=== PATIENT | male | born 1950 | race Caucasian/White ===

== ENCOUNTER 2017-03-02 05:34 | Emergency (ER) | payer OTHER ==
[~2017-03-02] VITALS: Ht 175.3 cm; Wt 97.8 kg
[~2017-03-02 05:34] MED LIST: AMARYL4 MG PO; ANALGESIC325 M1 PO; ASPIRIN325 MG PO; CARAFATE100 MG/ML PO; CENTRUM SILVER1 EAC3 PO; CYANOCOBALAM1000 MCG PO; FERROUS SULFAT325 MG PO; FOLIC ACID1 MG PO; GEMFIBROZIL600 MG PO; GLIMEPIRIDE4 MG PO; INVOKANA300 MG PO; JANUMET 50/11 TABLET PO; JENTADUETO 2.51 EAC2 PO; LASIX20 MG PO; LASIX40 MG PO; LEVAQUIN500 MG PO; LIPITOR20 MG PO; LISINOPRIL2.5 MG PO; LOPID600 MG PO; METOPROLOL SUC100 MG PO; PRAVASTATIN SOD20 MG PO; TOPROL XL100 MG PO; VITAMIN B-122500 MCG SL
[2017-03-02] MEDS ORDERED: METFORMIN HCL1000 MG PO (06:11)
[2017-03-02 06:12] LABS: HEMATOCRIT 44.7 % (38.0-50.0); MCH 32.5 PG (29.0-34.0); MCHC 33.3 G/DL (30.0-36.0); MCV 97.4 FL (86-99); MEAN PLAT.VOLUME 12.8 uM^3 (9.0-12.4); PLATELET COUNT 142 K/uL (156-360); RBC DIS.WIDTH-CV 13.6 % (11.8-14.6); RBC DIS.WIDTH-SD 49.3 % (39-53); RED BLOOD COUNT 4.59 M/uL (4.00-5.50); WHITE BLOOD COUNT 13.4 K/uL (4.1-10.2)
[2017-03-02] MEDS ORDERED: LISINOPRIL10 MG PO (06:12)
[2017-03-02] MEDS ORDERED: PIOGLITAZONE HC15 MG PO (06:13)
[2017-03-02] MEDS ORDERED: FENOFIBRATE145 M1 PO (06:13)
[2017-03-02 06:36] LABS: CHLORIDE 99 mEq/L (99-109); POTASSIUM 4.3 mEq/L (3.7-5.4); SODIUM 132 mEq/L (136-147)
[2017-03-02 06:39] LABS: GLUCOSE 246 mg/dL (70-99)
[2017-03-02 06:40] LABS: ANION GAP 11 MEQ/L (2-14)
[2017-03-02 06:42] LABS: ALKALINE PHOSPHATASE 53 IU/L (3-129); GFR ESTIMATE (CALCULATED) 43 mL/min/
[2017-03-02 06:43] LABS: UREA NITROGEN (BUN) 26 mg/dL (9-23)
[2017-03-02 06:44] LABS: DIRECT BILIRUBIN 0.4 mg/dL (0.0-0.3)
[2017-03-02 06:46] LABS: LIPASE 55 U/L (1.0-51.0)
[2017-03-02 07:18] LABS: ADD MIUA? YES; BILIRUBIN NEGATIVE; BLOOD NEGATIVE; COLOR YELLOW ((YELLOW)); GLUCOSE (STRIP) >=500; KETONES 5; LEUKOCYTES LARGE; NITRITE NEGATIVE; PROTEIN (STRIP) NEGATIVE; SPECIFIC GRAVITY 1.014 (1.000-1.030); UROBILINOGEN 0.2 MG/DL (0.2-1.0)
[2017-03-02 07:35] LABS: BACTERIA RARE /HPF; EPITHELIAL CELLS RARE /HPF; MUCUS TRACE /LPF; UCUL ADDED? NO; WHITE BLOOD CELLS 20-30 /HPF (0-5)
[2017-03-02] MEDS ORDERED: PERCOCET 5/31 TABLET PO (08:28)
[2017-03-02] MEDS ORDERED: FLOMAX0.4 MG PO (08:28)
[2017-03-02] MEDS ORDERED: LEVAQUIN500 MG PO (08:28)
[2017-03-02] MEDS ORDERED: ZOFRAN ODT4 MG PO (08:28)
[2017-03-02 09:08] VITALS: BP 132/76
[2017-03-03] MEDS ORDERED: ASPIR-LOW81 MG PO (14:24)
[2017-03-03] MEDS ORDERED: CYANOCOBALAM1000 MCG PO (14:25)
[2017-03-03] MEDS ORDERED: LIPITOR40 MG PO (14:25)
[2017-03-03] MEDS ORDERED: ZESTORETIC 20-1 EAC1 PO (14:26)
[2017-03-03] MEDS ORDERED: METFORMIN HCL500 M1 PO (14:27)
[2017-03-03] MEDS ORDERED: LEVAQUIN500 MG PO (14:32)
== END 2017-03-02 09:09 | disposition home or self-care (01) ==
LOC: EME 05:34
DX: N13.2 Hydronephrosis with renal and ureteral calculous obstruction (principal); N39.0 Urinary tract infection, site not specified; R11.2 Nausea with vomiting, unspecified; I10 Essential (primary) hypertension; E78.5 Hyperlipidemia, unspecified; E11.9 Type 2 diabetes mellitus without complications; Z79.84 Long term (current) use of oral hypoglycemic drugs; Z87.442 Personal history of urinary calculi; Z95.1 Presence of aortocoronary bypass graft; F17.200 Nicotine dependence, unspecified, uncomplicated
CPT/HCPCS: 74176; 80048; 80076; 81003; 83690; 85027; 99281; 99285; J2270; J2405; J3010

== ENCOUNTER 2017-03-03 12:25 | Inpatient (IN) | payer OTHER ==
[~2017-03-03] VITALS: Ht 175.3 cm; Wt 99.5 kg
[2017-03-03] VITALS (7 sets, daily range): BP systolic 90–103; BP diastolic 42–56
[~2017-03-03 12:25] MED LIST changes: +FENOFIBRATE145 M1 PO; +FLOMAX0.4 MG PO; +LISINOPRIL10 MG PO; +METFORMIN HCL1000 MG PO; +PERCOCET 5/31 TABLET PO; +PIOGLITAZONE HC15 MG PO; +ZOFRAN ODT4 MG PO
[2017-03-03 13:12] LABS: BASE EXCESS -1.5 mEq/L (-3 to +3); BICARBONATE 20.9 mEq/L (22-26); CARBOXY HGB 3.9 % (0-5); METHEMOGLOBIN 1.3 % (0-1.5); PCO2 28 mm Hg (35-45); PO2 51 mm Hg (80-100); pH 7.48 (7.35-7.45)
[2017-03-03 13:13] LABS: COMMENTS - BLOOD GASES A+C+; DEVICE RA; SITE RRA; TOTAL RESP RATE 16 resp/min
[2017-03-03 13:39] LABS: HEMATOCRIT 38.9 % (38.0-50.0); MCH 32.2 PG (29.0-34.0); MCHC 33.4 G/DL (30.0-36.0); MCV 96.3 FL (86-99); RBC DIS.WIDTH-CV 13.6 % (11.8-14.6); RBC DIS.WIDTH-SD 48.3 % (39-53); RED BLOOD COUNT 4.04 M/uL (4.00-5.50); WHITE BLOOD COUNT 12.3 K/uL (4.1-10.2)
[2017-03-03 13:43] LABS: CHLORIDE 97 mEq/L (99-109); POTASSIUM 3.8 mEq/L (3.7-5.4); SODIUM 129 mEq/L (136-147)
[2017-03-03 13:44] LABS: INTER. NORMALIZED RATIO 1.3; PROTHROMBIN TIME 13.1 (9.2-11.2); PTT 29.6 (25-32)
[2017-03-03 13:45] LABS: GLUCOSE 235 mg/dL (70-99)
[2017-03-03 13:47] LABS: ANION GAP 10 MEQ/L (2-14)
[2017-03-03 13:49] LABS: ALKALINE PHOSPHATASE 51 IU/L (3-129)
[2017-03-03 13:50] LABS: UREA NITROGEN (BUN) 29 mg/dL (9-23)
[2017-03-03 13:51] LABS: DIRECT BILIRUBIN 0.4 mg/dL (0.0-0.3); GFR ESTIMATE (CALCULATED) 26 mL/min/; TOTAL BILIRUBIN 0.7 mg/dL (0.0-1.0)
[2017-03-03 13:52] LABS: TROP-I INTERPRETATION NEGATIVE; TROPONIN-I 0.02 ng/mL (0.0-0.30)
[2017-03-03 13:52] LABS: LIPASE 17 U/L (1.0-51.0)
[2017-03-03] MEDS ORDERED: ASPIR-LOW81 MG PO (14:24)
[2017-03-03] MEDS ORDERED: CYANOCOBALAM1000 MCG PO (14:25)
[2017-03-03] MEDS ORDERED: LIPITOR40 MG PO (14:25)
[2017-03-03] MEDS ORDERED: ZESTORETIC 20-1 EAC1 PO (14:26)
[2017-03-03] MEDS ORDERED: METFORMIN HCL500 M1 PO (14:27)
[2017-03-03] MEDS ORDERED: LEVAQUIN500 MG PO (14:32)
[2017-03-03 14:46] LABS: EOSINOPHIL (%) 0 % (0-5); IMMATURE GRANULOCYTE (%) 0.6 % (0.0-0.7); IMMATURE GRANULOCYTE COUNT 0.1 K/uL; INSTRUMENT ABS NEUTROPHIL CT 11.3 K/uL; LYMPHOCYTE COUNT 0.3 K/uL (1.0-2.8); MONOCYTE (%) 4.5 % (3-12); MONOCYTE COUNT 0.6 K/uL (0-0.8); NEUTROPHIL (%) 92.1 % (45-76); NEUTROPHIL COUNT 11.3 K/uL (1.8-6.4)
[2017-03-03 14:49] LABS: MEAN PLAT.VOLUME 12.9 uM^3 (9.0-12.4); PLAT.SUFFICIENCY DECREASED
[2017-03-03 14:55] LABS: PLATELET COUNT 97 K/uL (156-360)
[2017-03-03 15:33] LABS: POINT-OF-CARE METER ID UU14100415
[2017-03-03 19:28] LABS: ADD MIUA? YES; BILIRUBIN NEGATIVE; BLOOD NEGATIVE; COLOR YELLOW ((YELLOW)); GLUCOSE (STRIP) 50; KETONES 5; LEUKOCYTES MODERATE; NITRITE NEGATIVE; PROTEIN (STRIP) NEGATIVE; SPECIFIC GRAVITY 1.016 (1.000-1.030); UROBILINOGEN 0.2 MG/DL (0.2-1.0)
[2017-03-03 19:34] LABS: TROP-I INTERPRETATION NEGATIVE; TROPONIN-I 0.05 ng/mL (0.0-0.30)
[2017-03-03 19:37] LABS: BACTERIA NONE SEEN /HPF; EPITHELIAL CELLS RARE /HPF; HYALINE CASTS 0-5 /LPF; MUCUS NONE SEEN /LPF; RED BLOOD CELLS 0-5 /HPF (0-5); UCUL ADDED? NO
[2017-03-03 21:30] LABS: METH RESISTANT S AUREUS PCR NEGATIVE (NEGATIVE)
[2017-03-03 21:36] LABS: PROBE CHECK PASS; SPECIMEN PROCESSING CONTROL PASS
[2017-03-03 23:10] LABS: POINT-OF-CARE METER ID UU14174217
[2017-03-04] VITALS (27 sets, daily range): BP systolic 97–155; BP diastolic 43–77
[2017-03-04 01:51] LABS: TROP-I INTERPRETATION NEGATIVE; TROPONIN-I 0.12 ng/mL (0.0-0.30)
[2017-03-04 07:04] LABS: HEMATOCRIT 34.5 % (38.0-50.0); MCH 33.1 PG (29.0-34.0); PLATELET COUNT 81 K/uL (156-360); RBC DIS.WIDTH-CV 14.3 % (11.8-14.6); RBC DIS.WIDTH-SD 52.4 % (39-53); RED BLOOD COUNT 3.44 M/uL (4.00-5.50); WHITE BLOOD COUNT 8.6 K/uL (4.1-10.2)
[2017-03-04 07:05] LABS: MCV 100.3 FL (86-99)
[2017-03-04 07:17] LABS: ANION GAP 11 MEQ/L (2-14); CHLORIDE 105 MEQ/L (99-109); GFR ESTIMATE (CALCULATED) 32 mL/min/; GLUCOSE 160 mg/dL (70-99); MAGNESIUM 1.5 mg/dl (1.3-2.7); POTASSIUM 4.1 MEQ/L (3.7-5.4); SAMPLE HEMOLYSIS CHECK 0; SAMPLE ICTERIC CHECK 0; SAMPLE LIPEMIA CHECK 0; UREA NITROGEN (BUN) 25 mg/dL (9-23)
[2017-03-04 07:18] LABS: SODIUM 136 MEQ/L (136-147)
[2017-03-04 12:54] LABS: POINT-OF-CARE METER ID UU14174217
[2017-03-04 17:33] LABS: POINT-OF-CARE METER ID UU14162636
[2017-03-04 23:39] LABS: POINT-OF-CARE METER ID UU14162636
[2017-03-05] VITALS (21 sets, daily range): BP systolic 93–120; BP diastolic 54–76
[2017-03-05 05:43] LABS: POINT-OF-CARE METER ID UU14162636; POINT-OF-CARE USER ID ENVSME70
[2017-03-05 06:52] LABS: EOSINOPHIL (%) 0 % (0-5); HEMATOCRIT 36.4 % (38.0-50.0); IMMATURE GRANULOCYTE (%) 0.9 % (0.0-0.7); IMMATURE GRANULOCYTE COUNT 0.1 K/uL; INSTRUMENT ABS NEUTROPHIL CT 7.7 K/uL; LYMPHOCYTE COUNT 0.6 K/uL (1.0-2.8); MCH 32.1 PG (29.0-34.0); MCHC 31.9 G/DL (30.0-36.0); MCV 100.8 FL (86-99); MEAN PLAT.VOLUME 12.9 uM^3 (9.0-12.4); MONOCYTE (%) 6.6 % (3-12); MONOCYTE COUNT 0.6 K/uL (0-0.8); NEUTROPHIL (%) 85.9 % (45-76); NEUTROPHIL COUNT 7.7 K/uL (1.8-6.4); PLATELET COUNT 101 K/uL (156-360); RBC DIS.WIDTH-CV 14.3 % (11.8-14.6); RBC DIS.WIDTH-SD 53.3 % (39-53); RED BLOOD COUNT 3.61 M/uL (4.00-5.50)
[2017-03-05 07:19] LABS: ANION GAP 8 MEQ/L (2-14); CHLORIDE 104 MEQ/L (99-109); GFR ESTIMATE (CALCULATED) 50 mL/min/; GLUCOSE 204 mg/dL (70-99); POTASSIUM 4.3 MEQ/L (3.7-5.4); SAMPLE HEMOLYSIS CHECK 0; SAMPLE ICTERIC CHECK 0; SAMPLE LIPEMIA CHECK 0; SODIUM 134 MEQ/L (136-147); UREA NITROGEN (BUN) 22 mg/dL (9-23)
[2017-03-05 12:17] LABS: POINT-OF-CARE METER ID UU14162636
[2017-03-05 17:47] LABS: POINT-OF-CARE METER ID UU14174217
[2017-03-06] VITALS (18 sets, daily range): BP systolic 88–129; BP diastolic 49–83
[2017-03-06 00:37] LABS: POINT-OF-CARE METER ID UU14162636
[2017-03-06 05:58] LABS: POINT-OF-CARE METER ID UU13113731
[2017-03-06 07:47] LABS: EOSINOPHIL (%) 0 % (0-5); HEMATOCRIT 34.4 % (38.0-50.0); IMMATURE GRANULOCYTE (%) 0.7 % (0.0-0.7); IMMATURE GRANULOCYTE COUNT 0.1 K/uL; INSTRUMENT ABS NEUTROPHIL CT 5.5 K/uL; LYMPHOCYTE COUNT 0.7 K/uL (1.0-2.8); MCH 31.3 PG (29.0-34.0); MCHC 31.7 G/DL (30.0-36.0); MCV 98.9 FL (86-99); MEAN PLAT.VOLUME 12.3 uM^3 (9.0-12.4); MONOCYTE (%) 9.3 % (3-12); MONOCYTE COUNT 0.6 K/uL (0-0.8); NEUTROPHIL (%) 80.2 % (45-76); NEUTROPHIL COUNT 5.5 K/uL (1.8-6.4); PLATELET COUNT 101 K/uL (156-360); RBC DIS.WIDTH-CV 14.3 % (11.8-14.6); RED BLOOD COUNT 3.48 M/uL (4.00-5.50); WHITE BLOOD COUNT 6.9 K/uL (4.1-10.2)
[2017-03-06 08:11] LABS: ANION GAP 7 MEQ/L (2-14); CHLORIDE 106 MEQ/L (99-109); GFR ESTIMATE (CALCULATED) > 59 mL/min/; GLUCOSE 223 mg/dL (70-99); POTASSIUM 4.6 MEQ/L (3.7-5.4); SAMPLE HEMOLYSIS CHECK 0; SAMPLE ICTERIC CHECK 0; SAMPLE LIPEMIA CHECK 0; SODIUM 135 MEQ/L (136-147); UREA NITROGEN (BUN) 30 mg/dL (9-23)
[2017-03-06 12:21] LABS: POINT-OF-CARE METER ID UU13113731
[2017-03-06 17:52] LABS: POINT-OF-CARE METER ID UU13113731
[2017-03-07 00:17] VITALS: BP 116/61
[2017-03-07 03:03] VITALS: BP 140/72
[2017-03-07 07:50] VITALS: BP 138/70
[2017-03-07 10:50] LABS: HEMATOCRIT 33.1 % (38.0-50.0); MCH 32.4 PG (29.0-34.0); MCHC 32.6 G/DL (30.0-36.0); MCV 99.4 FL (86-99); MEAN PLAT.VOLUME 12.6 uM^3 (9.0-12.4); PLATELET COUNT 139 K/uL (156-360); RBC DIS.WIDTH-CV 14.3 % (11.8-14.6); RBC DIS.WIDTH-SD 52.1 % (39-53); RED BLOOD COUNT 3.33 M/uL (4.00-5.50); WHITE BLOOD COUNT 8.2 K/uL (4.1-10.2)
[2017-03-07 11:13] LABS: ANION GAP 8 MEQ/L (2-14); CHLORIDE 106 MEQ/L (99-109); GFR ESTIMATE (CALCULATED) > 59 mL/min/; GLUCOSE 315 mg/dL (70-99); POTASSIUM 4.2 MEQ/L (3.7-5.4); SAMPLE HEMOLYSIS CHECK 0; SAMPLE ICTERIC CHECK 0; SAMPLE LIPEMIA CHECK 0; SODIUM 142 MEQ/L (136-147); UREA NITROGEN (BUN) 32 mg/dL (9-23)
[2017-03-07 12:10] VITALS: BP 148/70
[2017-03-07 15:35] VITALS: BP 117/69
[2017-03-07 19:00] VITALS: BP 122/59
[2017-03-08 00:16] VITALS: BP 136/71
[2017-03-08 06:04] LABS: POINT-OF-CARE METER ID UU14162508; POINT-OF-CARE USER ID 609231305
[2017-03-08 06:12] LABS: HEMATOCRIT 33.8 % (38.0-50.0); MCH 31.8 PG (29.0-34.0); MCHC 32.2 G/DL (30.0-36.0); MCV 98.5 FL (86-99); NRBC (%) 0.2 /100 WBC (0-0); PLATELET COUNT 165 K/uL (156-360); RBC DIS.WIDTH-CV 13.9 % (11.8-14.6); RBC DIS.WIDTH-SD 50.5 % (39-53); RED BLOOD COUNT 3.43 M/uL (4.00-5.50); WHITE BLOOD COUNT 8.8 K/uL (4.1-10.2)
[2017-03-08 06:33] VITALS: BP 117/66
[2017-03-08 06:41] LABS: ANION GAP 8 MEQ/L (2-14); CHLORIDE 106 MEQ/L (99-109); GFR ESTIMATE (CALCULATED) > 59 mL/min/; GLUCOSE 275 mg/dL (70-99); POTASSIUM 3.9 MEQ/L (3.7-5.4); SAMPLE HEMOLYSIS CHECK 0; SAMPLE ICTERIC CHECK 0; SAMPLE LIPEMIA CHECK 0; SODIUM 143 MEQ/L (136-147); UREA NITROGEN (BUN) 39 mg/dL (9-23)
[2017-03-08 07:45] VITALS: BP 172/93
[2017-03-08 11:42] VITALS: BP 148/67
[2017-03-08 15:45] VITALS: BP 111/58
[2017-03-09] VITALS (7 sets, daily range): BP systolic 123–173; BP diastolic 60–76
[2017-03-09 00:40] LABS: POINT-OF-CARE METER ID UU14162508; POINT-OF-CARE USER ID 609231305
[2017-03-09 05:59] LABS: POINT-OF-CARE METER ID UU14162508; POINT-OF-CARE USER ID AHSUCEG
[2017-03-09 08:37] LABS: HEMATOCRIT 37.8 % (38.0-50.0); MCH 33.2 PG (29.0-34.0); MCHC 33.9 G/DL (30.0-36.0); MCV 97.9 FL (86-99); MEAN PLAT.VOLUME 11.4 uM^3 (9.0-12.4); NRBC (%) 0.9 /100 WBC (0-0); RBC DIS.WIDTH-CV 14.4 % (11.8-14.6); RBC DIS.WIDTH-SD 51.4 % (39-53); RED BLOOD COUNT 3.86 M/uL (4.00-5.50); WHITE BLOOD COUNT 13.7 K/uL (4.1-10.2)
[2017-03-09 08:39] LABS: PLATELET COUNT 266 K/uL (156-360)
[2017-03-09 08:46] LABS: ANION GAP 8 MEQ/L (2-14); CHLORIDE 104 MEQ/L (99-109); GFR ESTIMATE (CALCULATED) > 59 mL/min/; SAMPLE HEMOLYSIS CHECK 0; SAMPLE ICTERIC CHECK 0; SAMPLE LIPEMIA CHECK 0; SODIUM 148 MEQ/L (136-147); UREA NITROGEN (BUN) 37 mg/dL (9-23)
[2017-03-09 08:47] LABS: GLUCOSE 113 mg/dL (70-99); POTASSIUM 2.7 MEQ/L (3.7-5.4)
[2017-03-09 12:27] LABS: POINT-OF-CARE METER ID UU14162508
[2017-03-09 16:57] LABS: POINT-OF-CARE METER ID UU14162508
[2017-03-10 00:13] LABS: POINT-OF-CARE METER ID UU14162508
[2017-03-10 00:42] VITALS: BP 137/66
[2017-03-10 04:43] VITALS: BP 155/70
[2017-03-10 06:31] LABS: HEMATOCRIT 35.8 % (38.0-50.0); MCHC 33.5 G/DL (30.0-36.0); MCV 98.4 FL (86-99); MEAN PLAT.VOLUME 11.3 uM^3 (9.0-12.4); NRBC (%) 0.6 /100 WBC (0-0); PLATELET COUNT 247 K/uL (156-360); RBC DIS.WIDTH-CV 14.6 % (11.8-14.6); RBC DIS.WIDTH-SD 52.8 % (39-53); RED BLOOD COUNT 3.64 M/uL (4.00-5.50); WHITE BLOOD COUNT 11.3 K/uL (4.1-10.2)
[2017-03-10 06:45] LABS: POINT-OF-CARE METER ID UU14162508
[2017-03-10 07:07] LABS: ANION GAP 9 MEQ/L (2-14); CHLORIDE 105 MEQ/L (99-109); GFR ESTIMATE (CALCULATED) > 59 mL/min/; GLUCOSE 184 mg/dL (70-99); POTASSIUM 3.5 MEQ/L (3.7-5.4); SAMPLE HEMOLYSIS CHECK 0; SAMPLE ICTERIC CHECK 0; SAMPLE LIPEMIA CHECK 0; SODIUM 145 MEQ/L (136-147); UREA NITROGEN (BUN) 32 mg/dL (9-23)
[2017-03-10 08:00] VITALS: BP 142/63
[2017-03-10 09:10] LABS: MAGNESIUM 1.8 mg/dl (1.3-2.7)
[2017-03-10 12:00] VITALS: BP 199/98
[2017-03-10 12:08] LABS: POINT-OF-CARE METER ID UU14162508; POINT-OF-CARE USER ID AHSUCEG
[2017-03-10 12:15] LABS: POINT-OF-CARE METER ID UU14162508
== END 2017-03-10 15:19 | disposition home or self-care (01) | DRG 871 ==
LOC: EME 12:25 → EDOF 14:58 → 4WEST 14:58 → EDOF 18:19 → 4WEST 19:43 → 2EAST 03-06 22:33
PROVIDERS: Emergency Medicine; Hospitalist; Internal Medicine; Internal Medicine Pulmonary Disease; Nurse Practitioner Family
DX: A41.01 Sepsis due to Methicillin susceptible Staphylococcus aureus (principal); N13.6 Pyonephrosis; N17.9 Acute kidney failure, unspecified; R65.20 Severe sepsis without septic shock; J96.01 Acute respiratory failure with hypoxia; E87.70 Fluid overload, unspecified; E87.6 Hypokalemia; N21.0 Calculus in bladder; D69.6 Thrombocytopenia, unspecified; E87.1 Hypo-osmolality and hyponatremia; I10 Essential (primary) hypertension; E11.65 Type 2 diabetes mellitus with hyperglycemia; E78.5 Hyperlipidemia, unspecified; E87.2 Acidosis; E87.8 Other disorders of electrolyte and fluid balance, not elsewhere classified; I25.10 Atherosclerotic heart disease of native coronary artery without angina pectoris; G89.29 Other chronic pain; M51.9 Unspecified thoracic, thoracolumbar and lumbosacral intervertebral disc disorder; F17.210 Nicotine dependence, cigarettes, uncomplicated; E66.9 Obesity, unspecified; Z68.32 Body mass index [BMI] 32.0-32.9, adult; I25.2 Old myocardial infarction; Z95.1 Presence of aortocoronary bypass graft; Z95.5 Presence of coronary angioplasty implant and graft; Z86.79 Personal history of other diseases of the circulatory system; Z79.84 Long term (current) use of oral hypoglycemic drugs; Z79.82 Long term (current) use of aspirin; Z95.2 Presence of prosthetic heart valve
CPT/HCPCS: 36600; 71010; 71020; 74176; 74420; 76770; 80048; 80053; 80076; 81003; 82803; 82948; 83605; 83690; 83735; 84100; 84484; 85025; 85027; 85610; 85730; 87040; 87077; 87086; 87186; 87641; 87801; 93005; 94640; 94640 76; 94799; 99202; 99281; 99285; C1758; C1876; J0690; J0696; J1170; J1644; J1720; J1815; J1940; J2175; J2270; J2405; J2543; J3010; J3475; J7030; J7050; J7060; S0032